=== PATIENT | male | born 1985 | race Caucasian/White ===

== ENCOUNTER 2017-11-10 18:17 | Emergency (ER) | payer OTHER ==
[~2017-11-10] VITALS: Ht 175.3 cm; Wt 88.5 kg
[2017-11-10 18:25] VITALS: BP_SYST 147
--- NOTE | 2017-11-10 18:31 | NUR ---
Patient triaged and placed in waiting room. VSS and patient appears in no acute distress at this time. Accompanied by mother, awaiting available bed, and MD notified of need for MSE.
--- NOTE | 2017-11-10 18:55 | NUR ---
BROUGHT BACK TO BED #7 AND REPORT GIVEN TO NURSE
--- NOTE | 2017-11-10 18:56 | NUR ---
Patient brought in with mother. Patient states that [place] 2 weeks ago when he stepped on an unstable rock and fell on his left leg. Was seen by PMD and sent to radiology. Complaining of worsening pain and swelling to his left leg and foot. Pedal pulses present. Pain 7/10. No other complaints/injuries per patient or as noted. Will continue to monitor
--- NOTE | 2017-11-10 20:40 | NUR ---
ER Dr. Hemphill at bedside examining patient.
[2017-11-10 21:08] VITALS: BP_SYST 138
--- NOTE | 2017-11-10 21:08 | NUR ---
Patient given written and verbal discharge instructions and verbalizes understanding. ER MD discussed with patient the results and treatment provided. Patient in stable condition. ID arm band removed. Rx of Tylenol No 3 with codiene and Motrin given. Patient educated on pain management and to follow up with PMD in 2-3 days. Pain Scale 0/10 Opportunity for questions provided and answered. Medication side effect fact sheet provided.
== END 2017-11-10 21:08 | disposition home or self-care (01) ==
LOC: SED 18:17
DX: S93.602A Unspecified sprain of left foot, initial encounter (principal); W01.198A Fall on same level from slipping, tripping and stumbling with subsequent striking against other object, initial encounter; Y93.89 Activity, other specified; Y92.89 Other specified places as the place of occurrence of the external cause; Y99.8 Other external cause status
CPT/HCPCS: 73590-TC; 99284